=== PATIENT | male | born 1955 | race Caucasian/White ===

== ENCOUNTER 2022-03-12 18:48 | Emergency (ER) | payer OTHER ==
[2022-03-12] MEDS: Lidocaine 1% 5 ML VIAL INJECT ONE (19:40)
[2022-03-12] MEDS: Bacitracin Oint 1 GM U/D Packet TOP ONE (19:40)
== END 2022-03-12 19:40 | disposition home or self-care (01) ==
LOC: JP.ED 18:48
DX: S69.91XA Unspecified injury of right wrist, hand and finger(s), initial encounter (principal); Z79.899 Other long term (current) drug therapy; W45.8XXA Other foreign body or object entering through skin, initial encounter
CPT/HCPCS: 99283